=== PATIENT | male | born 1950 | race Caucasian/White ===

== ENCOUNTER 2016-04-27 11:15 | Emergency (ER) | payer BC ==
[~2016-04-27] VITALS: Ht 175.3 cm; Wt 72.7 kg
[~2016-04-27 11:15] MED LIST: ACYCLOVIR; ACYCLOVIR400 MG PO; ATROVENTNS0.03% NS; CALCIUM 600600 M2 PO; CALCIUM CARBON500 M1 PO; CALTRATE-600 W600 MG PO; COUMADIN 22.5 MG/TAB PO; COUMADIN 5MG5 MG/TAB PO; FLEXERIL 1010 MG/TAB PO; FLOVENT 220MCG7.9 GM IH; FOSAMAX 70MG TA70 MG PO; FUROSEMIDE; LASIX 20MG TABL20 MG PO; LEVAQUIN 5500 MG/TAB PO; LEVAQUIN 750MG750 MG PO; LEVOTHYROXINE PO; LOPRESSOR; LOPRESSOR 225 MG/TAB PO; LOPRESSOR100 MG PO; MAG-OX 400400 MG/TAB PO; NORCO 325 MG-51 TAB PO; RT ADVAIR 528 DISKUS IH; RT SPIRIVA18 MCG IH; SINGULAIR 110 MG/TAB PO; SYNTHROID0.1 MG/TAB PO; SYNTHROID0.112 MG/T PO; SYNTHROID0.125 MG PO; TIKOSYN0.125 MG PO; TOPROL XL 50MG50 MG PO; TOPROL XL25 MG PO; VITAMIN D1000 IU PO; XOPENEX HF0.045 MG/A IH; ZOVIRAX 800MG800 MG PO
[2016-04-27 11:26] VITALS: TEMP 98.3
[2016-04-27 12:46] LABS: BASO % 0.6 % (0.0-2.0); EOS # 0.1 (0.0-0.7); EOS % 1.1 % (0-4.0); GRAN # 2.7 (1.4-6.5); GRAN % 38.2 % (42.2-75.2); HEMATOCRIT 43.3 % (42.0-52.0); HEMOGLOBIN 15.2 g/dl (13.5-18.0); LYMPH # 3.4 (1.2-3.4); LYMPH % 48.2 % (20.0-51.0); MEAN CELL VOLUME 98 fl (80.0-100.0); MEAN CORPUSCULAR HEMOGLOBIN 34 pg (27.0-31.0); MEAN CORPUSCULAR HGB CONC 35 g/dl (33.0-37.0); MEAN PLATELET VOLUME 9.7 fl (7.4-10.4); MONO # 0.8 (0.1-0.6); MONO % 11.6 % (1.7-9.3); PLATELET COUNT 185 K/mm3 (130-400); RED BLOOD COUNT 4.44 M/mm3 (4.20-5.60); REDCELL DISTRIBUTION WIDTH-CV 15.1 % (11.5-14.5)
[2016-04-27 12:50] LABS: ADJUSTED CALCIUM 9.7 mg/dL (8.4-10.2); CALCIUM 9.7 mg/dL (8.4-10.2); CREATININE, serum 0.95 mg/dL (0.66-1.25); POTASSIUM 4.1 mmol/L (3.4-5.0); TOTAL PROTEIN 7.6 gm/dL (6.4-8.2)
[2016-04-27 13:02] LABS: TROPONIN-I 0.015 ng/mL (0.000-0.034)
[2016-04-27 13:12] LABS: PROTHROMBIN TIME 34.3 SECONDS (9.7-12.8)
[2016-04-27 15:49] VITALS: BP 147/85; PULSE 68
== END 2016-04-27 15:50 | disposition home or self-care (01) ==
LOC: COL.ER 11:15
PROVIDERS: Emergency Medicine
DX: R00.2 Palpitations (principal); R07.89 Other chest pain; Z95.810 Presence of automatic (implantable) cardiac defibrillator; I48.91 Unspecified atrial fibrillation

== ENCOUNTER 2016-05-17 06:46 | Inpatient (IN) | payer BC ==
[~2016-05-17] VITALS: Ht 175.3 cm; Wt 73.1 kg
[2016-05-17 07:27] LABS: HEMATOCRIT 44.4 % (42.0-52.0); HEMOGLOBIN 15.4 g/dl (13.5-18.0); MEAN CELL VOLUME 97 fl (80.0-100.0); MEAN CORPUSCULAR HEMOGLOBIN 34 pg (27.0-31.0); MEAN CORPUSCULAR HGB CONC 35 g/dl (33.0-37.0); MEAN PLATELET VOLUME 9.4 fl (7.4-10.4); PLATELET COUNT 147 K/mm3 (130-400); RED BLOOD COUNT 4.58 M/mm3 (4.20-5.60); REDCELL DISTRIBUTION WIDTH-CV 15.4 % (11.5-14.5); WHITE BLOOD COUNT 5.6 K/mm3 (4.8-10.8)
[2016-05-17 07:34] LABS: INFLUENZA B NEGATIVE
[2016-05-17 07:36] LABS: ADD PATHOLOGY DIFF REVIEW NO
[2016-05-17 07:46] LABS: ADJUSTED CALCIUM 9.2 mg/dL (8.4-10.2); ALBUMIN 3.8 gm/dL (3.5-5.0); BILIRUBIN,TOTAL 1.5 mg/dL (0.0-1.0); CREATININE, serum 1.86 mg/dL (0.66-1.25); POTASSIUM 4.8 mmol/L (3.4-5.0); TOTAL PROTEIN 7.5 gm/dL (6.4-8.2)
[2016-05-17 08:18] LABS: BAND 56 % (0-10); EOSINOPHIL 1 % (0-4); METAMYELOCYTE 12 % (0-0); MYELOCYTE 1 % (0-0); NEUTROPHILS 10 % (42.0-75.2); TOTAL CELLS COUNTED 100
[2016-05-17 08:19] LABS: TOXIC GRANULATION PRESENT
[2016-05-17 08:50] LABS: INR 4.5 (0.8-3.0); PROTHROMBIN TIME 52.4 SECONDS (9.7-12.8)
[2016-05-17] MEDS ORDERED: ZOCOR 10MG10 MG PO (08:55)
[2016-05-17] MEDS ORDERED: ZITHROMAX 250M250 MG PO (08:55)
[2016-05-17 10:19] VITALS: BP 102/61; PULSE 114; TEMP 97.4
[2016-05-17 10:59] VITALS: BP 108/68; PULSE 113; TEMP 98.2
[2016-05-17 15:14] VITALS: BP 107/66; PULSE 117; TEMP 97.4
[2016-05-17 19:36] VITALS: BP 111/69; PULSE 116; TEMP 98.1
[2016-05-17 23:46] VITALS: BP 108/70; PULSE 114; TEMP 98.3
[2016-05-18 03:52] VITALS: BP 101/64; PULSE 113; TEMP 98.2
[2016-05-18 07:35] LABS: ADD PATHOLOGY DIFF REVIEW NO
[2016-05-18 07:54] VITALS: BP 103/71; PULSE 97; TEMP 98.4
[2016-05-18 08:03] LABS: INR 5.6 (0.8-3.0); PROTHROMBIN TIME 64.9 SECONDS (9.7-12.8)
[2016-05-18 08:26] LABS: HEMATOCRIT 38.4 % (42.0-52.0); MEAN CELL VOLUME 99 fl (80.0-100.0); MEAN CORPUSCULAR HEMOGLOBIN 34 pg (27.0-31.0); MEAN CORPUSCULAR HGB CONC 34 g/dl (33.0-37.0); MEAN PLATELET VOLUME 10.6 fl (7.4-10.4); PLATELET COUNT 114 K/mm3 (130-400); WHITE BLOOD COUNT 9.9 K/mm3 (4.8-10.8)
[2016-05-18 08:29] LABS: HEMOGLOBIN 13.2 g/dl (13.5-18.0)
[2016-05-18 08:44] LABS: BAND 35 % (0-10); NEUTROPHILS 56 % (42.0-75.2); PLATELET ESTIMATE DECREASED (NORMAL); TOTAL CELLS COUNTED 100; TOXIC GRANULATION PRESENT
[2016-05-18 09:10] LABS: CALCIUM 8.2 mg/dL (8.4-10.2); CREATININE, serum 1.08 mg/dL (0.66-1.25); MAGNESIUM 2.1 mg/dL (1.6-2.3); POTASSIUM 4.5 mmol/L (3.4-5.0)
[2016-05-18 11:23] VITALS: BP 107/66; PULSE 95; TEMP 97.4
[2016-05-18 16:05] VITALS: BP 109/71; PULSE 115; TEMP 98.9
[2016-05-18 19:49] VITALS: BP 126/73; PULSE 112; TEMP 98.4
[2016-05-18 23:50] VITALS: BP 106/72; PULSE 115; TEMP 98.5
[2016-05-19 04:01] VITALS: BP 124/65; PULSE 114; TEMP 98
[2016-05-19 08:02] LABS: ADD PATHOLOGY DIFF REVIEW NO
[2016-05-19 08:13] LABS: MEAN CELL VOLUME 96 fl (80.0-100.0); MEAN CORPUSCULAR HGB CONC 35 g/dl (33.0-37.0); MEAN PLATELET VOLUME 10.6 fl (7.4-10.4); PLATELET COUNT 105 K/mm3 (130-400); RED BLOOD COUNT 3.32 M/mm3 (4.20-5.60); REDCELL DISTRIBUTION WIDTH-CV 15.9 % (11.5-14.5); WHITE BLOOD COUNT 10.7 K/mm3 (4.8-10.8)
[2016-05-19 08:21] LABS: INR 1.4 (0.8-3.0); PROTHROMBIN TIME 15.2 SECONDS (9.7-12.8)
[2016-05-19 08:22] LABS: HEMOGLOBIN 11.2 g/dl (13.5-18.0); MEAN CORPUSCULAR HEMOGLOBIN 34 pg (27.0-31.0)
[2016-05-19 08:45] VITALS: BP 121/73; PULSE 85; TEMP 97.8
[2016-05-19 09:01] LABS: CALCIUM 8.5 mg/dL (8.4-10.2); CREATININE, serum 0.81 mg/dL (0.66-1.25); MAGNESIUM 2.5 mg/dL (1.6-2.3)
[2016-05-19 11:18] LABS: BAND 30 % (0-10); NEUTROPHILS 54 % (42.0-75.2); TOTAL CELLS COUNTED 100
[2016-05-19 11:19] LABS: PLATELET ESTIMATE DECREASED (NORMAL)
[2016-05-19 11:32] VITALS: BP 107/63; PULSE 93; TEMP 97.8
[2016-05-19 16:55] VITALS: BP 139/84; PULSE 115; TEMP 98
[2016-05-19 19:21] VITALS: BP 126/75; PULSE 102; TEMP 99.6
[2016-05-19 23:37] VITALS: BP 117/67; PULSE 116; TEMP 99.1
[2016-05-20 02:34] VITALS: BP 131/78; PULSE 115; TEMP 99.3
[2016-05-20 07:20] VITALS: BP 126/93; PULSE 102; TEMP 97.9
[2016-05-20 08:45] LABS: INR 1.2 (0.8-3.0); PROTHROMBIN TIME 13.3 SECONDS (9.7-12.8)
[2016-05-20 11:59] VITALS: BP 121/85; PULSE 77; TEMP 97.4
[2016-05-20] MEDS ORDERED: CEFTIN500 MG PO (12:11)
[2016-05-20] MEDS ORDERED: PREDNISONE20 MG PO (12:16)
[2016-05-20 15:31] VITALS: BP 133/85; PULSE 121; TEMP 97.6
== END 2016-05-20 16:00 | disposition home or self-care (01) | DRG 194 ==
LOC: COL.ER 06:46 → MEDICAL 07:50
PROVIDERS: Emergency Medicine; Internal Medicine
DX: J13 Pneumonia due to Streptococcus pneumoniae (principal); Z94.84 Stem cells transplant status; D89.813 Graft-versus-host disease, unspecified; N17.9 Acute kidney failure, unspecified; I48.0 Paroxysmal atrial fibrillation; J44.9 Chronic obstructive pulmonary disease, unspecified; E03.9 Hypothyroidism, unspecified; Z85.79 Personal history of other malignant neoplasms of lymphoid, hematopoietic and related tissues; Z79.01 Long term (current) use of anticoagulants
CPT/HCPCS: 99222-AI; 99232-AI; 99239; A9284; J0456; J0692; J0696; J1885; J1956; J7030; J7050; J7512

== ENCOUNTER → 2016-07-15 | Outpatient (CLI) | payer BC ==
[~2016-07-15] MED LIST changes: +CEFTIN500 MG PO; +PREDNISONE20 MG PO; +ZITHROMAX 250M250 MG PO; +ZOCOR 10MG10 MG PO
== END ==
LOC: COL.RAD 08:05
DX: R74.8 Abnormal levels of other serum enzymes (principal)

== ENCOUNTER → 2017-03-25 | Outpatient (CLI) | payer BC | LOC: COL.RAD 08:18 | DX: C61 Malignant neoplasm of prostate (principal) | CPT/HCPCS: Q9967 ==

== ENCOUNTER 2017-04-22 12:17 | Inpatient (IN) | payer BC ==
[~2017-04-22] VITALS: Ht 175.3 cm; Wt 69.8 kg
[2017-05-05 08:35] LABS: INR 1.1 (0.8-3.0); PROTHROMBIN TIME 12.4 SECONDS (9.7-12.8)
[2017-05-05 08:37] LABS: PARTIAL THROMBOPLASTIN TIME 28.7 SECONDS (26.0-37.0)
[2017-05-06] VITALS (11 sets, daily range): BP systolic 85–112; BP diastolic 52–79; PULSE 64–83; TEMP 97.3–98.4
[2017-05-06] MEDS ORDERED: COUMADIN 5MG5 MG/TAB PO (06:11)
[2017-05-06] MEDS ORDERED: TOPROL XL 50MG50 MG PO (06:12)
[2017-05-06] MEDS ORDERED: SINGULAIR 110 MG/TAB PO (06:12)
[2017-05-06] MEDS ORDERED: TIROSINT112 MC1 PO (06:13)
[2017-05-06] MEDS ORDERED: XOPENEX HF0.045 MG/A IH (06:15)
[2017-05-06] MEDS ORDERED: ATROVENTNS0.03% NS (06:17)
[2017-05-06] MEDS ORDERED: CALCIUM CARBON650 M2 PO (06:17)
[2017-05-06] MEDS ORDERED: VITAMIN D31000 I1 PO (06:18)
[2017-05-06] MEDS ORDERED: MAG-OX 400400 MG/TAB PO (06:19)
[2017-05-06] MEDS ORDERED: FOSAMAX 70MG TA70 MG PO (06:19)
[2017-05-06] MEDS ORDERED: ZITHROMAX 250M250 MG PO (06:20)
[2017-05-06] MEDS ORDERED: ZOCOR 10MG10 MG PO (06:21)
[2017-05-06] MEDS ORDERED: RT ADVAIR 528 DISKUS IH (06:22)
[2017-05-06 13:59] LABS: HEMATOCRIT 32.9 % (42.0-52.0); HEMOGLOBIN 11.2 g/dl (13.5-18.0)
[2017-05-07] VITALS (7 sets, daily range): BP systolic 89–119; BP diastolic 57–61; PULSE 51–84; TEMP 97.3–98.8
[2017-05-07 07:11] LABS: MEAN CELL VOLUME 99 fl (80.0-100.0); MEAN CORPUSCULAR HGB CONC 34 g/dl (33.0-37.0); MEAN PLATELET VOLUME 9.8 fl (7.4-10.4); PLATELET COUNT 139 K/mm3 (130-400); RED BLOOD COUNT 3.15 M/mm3 (4.20-5.60); REDCELL DISTRIBUTION WIDTH-CV 16.1 % (11.5-14.5)
[2017-05-07 07:13] LABS: HEMATOCRIT 31.2 % (42.0-52.0); HEMOGLOBIN 10.7 g/dl (13.5-18.0); MEAN CORPUSCULAR HEMOGLOBIN 34 pg (27.0-31.0)
[2017-05-07 07:30] LABS: CALCIUM 8.3 mg/dL (8.4-10.2); CREATININE, serum 0.78 mg/dL (0.66-1.25); POTASSIUM 4.3 mmol/L (3.4-5.0)
[2017-05-08 03:08] VITALS: BP 107/68; PULSE 64; TEMP 97.4
[2017-05-08 05:14] VITALS: BP 98/54; PULSE 67; TEMP 97.9
[2017-05-08 09:07] LABS: POTASSIUM 3.9 mmol/L (3.4-5.0)
[2017-05-08 10:53] VITALS: BP 102/57; PULSE 70; TEMP 98.3
== END 2017-05-08 13:10 | disposition home or self-care (01) | DRG 707 ==
LOC: SURG 05-06 05:31 → INPTSU 05-06 05:31 → SURG 05-06 07:30
PROVIDERS: Internal Medicine Nephrology; Urology
PROC: 0VT00ZZ Resection of Prostate, Open Approach (ICD-10-PCS; principal; 2017-05-06 07:30)
DX: C61 Malignant neoplasm of prostate (principal); I42.9 Cardiomyopathy, unspecified; C90.00 Multiple myeloma not having achieved remission; Z94.84 Stem cells transplant status; I48.91 Unspecified atrial fibrillation; J44.9 Chronic obstructive pulmonary disease, unspecified; Z95.0 Presence of cardiac pacemaker; Z79.01 Long term (current) use of anticoagulants; Z87.891 Personal history of nicotine dependence
CPT/HCPCS: A9284; J0690; J1100; J2250; J2405; J2704; J2710; J3010; J3480; J7120

== ENCOUNTER → 2018-11-30 | Outpatient (CLI) | payer BC ==
[~2018-11-30] MED LIST changes: +CALCIUM CARBON650 M2 PO; +TIROSINT112 MC1 PO; +VITAMIN D31000 I1 PO
== END ==
LOC: COL.RAD 09:14
DX: C61 Malignant neoplasm of prostate (principal); R97.21 Rising PSA following treatment for malignant neoplasm of prostate; Z90.79 Acquired absence of other genital organ(s)
CPT/HCPCS: Q9967

== ENCOUNTER → 2018-12-07 | Outpatient (CLI) | payer BC | LOC: COL.RAD 08:46 | DX: C61 Malignant neoplasm of prostate (principal); R97.21 Rising PSA following treatment for malignant neoplasm of prostate | CPT/HCPCS: A9503 ==

== ENCOUNTER 2019-07-20 15:28 | Emergency (ER) | payer BC ==
[~2019-07-20] VITALS: Ht 175.3 cm; Wt 72.7 kg
[2019-07-20 16:21] LABS: HEMATOCRIT 40.3 % (42.0-52.0); HEMOGLOBIN 14.2 g/dl (13.5-18.0); MEAN CELL VOLUME 97 fl (80.0-100.0); MEAN CORPUSCULAR HEMOGLOBIN 34 pg (27.0-31.0); MEAN CORPUSCULAR HGB CONC 35 g/dl (33.0-37.0); MEAN PLATELET VOLUME 9.1 fl (7.4-10.4); PLATELET COUNT 169 K/mm3 (130-400); RED BLOOD COUNT 4.16 M/mm3 (4.20-5.60); REDCELL DISTRIBUTION WIDTH-CV 16.1 % (11.5-14.5)
[2019-07-20 16:25] LABS: ALBUMIN 4.2 gm/dL (3.5-5.0); BILIRUBIN,TOTAL 0.6 mg/dL (0.0-1.0); CALCIUM 9.4 mg/dL (8.4-10.2); CREATININE, serum 1.05 (0.66-1.25); TOTAL PROTEIN 7.8 gm/dL (6.4-8.2)
[2019-07-20 16:40] LABS: INR 2.3 (0.8-3.0); PROTHROMBIN TIME 27.7 SECONDS (9.7-12.8)
[2019-07-20 16:43] LABS: PARTIAL THROMBOPLASTIN TIME 38.4 SECONDS (26.0-37.0)
[2019-07-20 16:45] LABS: TROPONIN-I 0.039 ng/mL (0.000-0.035)
[2019-07-20 17:23] LABS: BAND 1 % (0-10); EOSINOPHIL 1 % (0-4); LYMPHOCYTE 35 % (20.0-51.0); NEUTROPHILS 42 % (42.0-75.2); PLATELET ESTIMATE NORMAL (NORMAL)
[2019-07-20 17:24] LABS: ANISOCYTOSIS 1+
[2019-07-20 17:38] VITALS: BP 123/80; PULSE 54; TEMP 97
== END 2019-07-20 17:41 | disposition home or self-care (01) ==
LOC: COL.ER 15:28
PROVIDERS: Family Medicine
DX: I47.2 Ventricular tachycardia (principal); J44.9 Chronic obstructive pulmonary disease, unspecified; Z79.01 Long term (current) use of anticoagulants; Z79.51 Long term (current) use of inhaled steroids

== ENCOUNTER → 2019-08-02 | Outpatient (CLI) | payer BC ==
[~2019-08-02] VITALS: Ht 175.3 cm; Wt 71.7 kg
[~2019-08-02] MED LIST changes: +TOPROL XL100 MG PO
[2019-08-02 09:20] VITALS: BP 157/90; PULSE 59
[2019-08-02 10:38] VITALS: BP 143/71; PULSE 79
[2019-08-02 10:43] VITALS: BP 153/78; PULSE 97
[2019-08-02 10:44] VITALS: BP 167/80; PULSE 102
[2019-08-02 10:45] VITALS: BP 167/68; PULSE 102
[2019-08-02 10:46] VITALS: BP 161/86; PULSE 98
== END ==
LOC: COL.CARD 08:48
DX: I49.9 Cardiac arrhythmia, unspecified (principal)
CPT/HCPCS: A9500; J2785

== ENCOUNTER 2019-08-05 16:00 | Emergency (ER) | payer BC ==
[~2019-08-05] VITALS: Ht 175.3 cm; Wt 72.7 kg
[2019-08-05 16:04] VITALS: TEMP 97.8
[2019-08-05 16:25] LABS: BASO % 0.5 % (0.0-2.0); EOS # 0.1 (0.0-0.7); EOS % 1.5 % (0-4.0); GRAN # 2.2 (1.4-6.5); GRAN % 33.6 % (42.2-75.2); HEMATOCRIT 39.8 % (42.0-52.0); HEMOGLOBIN 13.9 g/dl (13.5-18.0); LYMPH # 3.1 (1.2-3.4); LYMPH % 46.5 % (20.0-51.0); MEAN CELL VOLUME 98 fl (80.0-100.0); MEAN CORPUSCULAR HEMOGLOBIN 34 pg (27.0-31.0); MEAN CORPUSCULAR HGB CONC 35 g/dl (33.0-37.0); MEAN PLATELET VOLUME 9.4 fl (7.4-10.4); MONO # 1.1 (0.1-0.6); MONO % 16.7 % (1.7-9.3); PLATELET COUNT 173 K/mm3 (130-400); RED BLOOD COUNT 4.08 M/mm3 (4.20-5.60); REDCELL DISTRIBUTION WIDTH-CV 16.1 % (11.5-14.5)
[2019-08-05 16:26] LABS: INR 2.5 (0.8-3.0); PROTHROMBIN TIME 29.6 SECONDS (9.7-12.8)
[2019-08-05 16:32] LABS: ALANINE AMINOTRANSFERASE 27 U/L (4-49); ALBUMIN 4.3 gm/dL (3.5-5.0); ALKALINE PHOSPHATASE 60 U/L (50-136); ANION GAP 7 mmol/L (7-16); AST,SGOT 43 U/L (15-37); BILIRUBIN,TOTAL 0.7 mg/dL (0.0-1.0); BLOOD UREA NITROGEN 23 mg/dL (9-20); CALCIUM 9.4 mg/dL (8.4-10.2); CARBON DIOXIDE 30 mmol/L (22-30); CHLORIDE 101 mmol/L (98-107); CREATINE KINASE 81 U/L (55-170); GLUCOSE 96 mg/dL (74-106); MAGNESIUM 2.2 mg/dL (1.6-2.3); SODIUM 138 mmol/L (137-145); TOTAL PROTEIN 7.8 gm/dL (6.4-8.2)
[2019-08-05 16:47] LABS: TROPONIN-I < 0.012 ng/mL (0.000-0.035)
[2019-08-05 17:15] VITALS: BP 153/78; PULSE 73
== END 2019-08-05 17:30 | disposition home or self-care (01) ==
LOC: COL.ER 16:00
PROVIDERS: Emergency Medicine
DX: Z45.02 Encounter for adjustment and management of automatic implantable cardiac defibrillator (principal); I48.91 Unspecified atrial fibrillation; Z87.891 Personal history of nicotine dependence; Z85.46 Personal history of malignant neoplasm of prostate; Z79.01 Long term (current) use of anticoagulants; Z79.51 Long term (current) use of inhaled steroids; Z95.810 Presence of automatic (implantable) cardiac defibrillator
CPT/HCPCS: J7030

== ENCOUNTER → 2020-02-15 | Outpatient (CLI) | payer BC | LOC: MC.RAD 13:52 | DX: N62 Hypertrophy of breast (principal); N63.11 Unspecified lump in the right breast, upper outer quadrant ==